=== PATIENT | male | born 1975 | race Caucasian/White ===

== ENCOUNTER 2022-05-25 04:00 | Emergency (ER) | payer BC ==
--- NOTE | 2022-05-25 04:38 | ED Physician Documentation ---
PD HPI CHEST PAIN - Stated complaint Stated Complaint: shoulder, chest pain - History obtained from History obtained from: Patient - History of Present Illness Timing - onset: How many days ago (3) Timing - details: Abrupt onset Pain level now: 2 Quality: Pressure Location: Left chest Radiation: Left upper extremity (left shoulder) Improved by: Nothing Worsened by: Inspiration Associated symptoms: No: Shortness of air, Diaphoresis, Nausea, Vomiting, Feeling faint / dizzy, General Weakness, Palpitations, Cough Similar symptoms before: Has not had sx before Recently seen: Not recently seen Review of Systems Constitutional: reports: Reviewed and negative Cardiac: reports: Chest pain / pressure. denies: Palpitations, Pedal edema, Calf pain Respiratory: reports: Reviewed and negative GI: reports: Reviewed and negative Musculoskeletal: denies: Extremity swelling PD PAST MEDICAL HISTORY - Past Medical History Past Medical History: No - Past Surgical History Past Surgical History: No - Allergies Allergies/Adverse Reactions: Allergies Allergy/AdvReac Type Severity Reaction Status Date / Time No Known Drug Allergies Allergy Verified 05/25/22 04:44 PD ED PE NORMAL - Vitals Vital signs reviewed: Yes - General General: Alert and oriented X 3, No acute distress, Well developed/nourished - Cardiac Cardiac: RRR, No murmur, No gallop, No rub - Respiratory Respiratory: No respiratory distress, Clear bilaterally - Abdomen Abdomen: Soft, Non tender - Derm Derm: Normal color, Warm and dry - Extremities Extremities: No edema Results - Vitals Vitals: Oxygen O2 Source Room air - EKG (time done) No standard instances Rate: Rate (enter#) (75) Rhythm: NSR [place]: Normal Intervals: Normal [place] QRS: Normal Ischemia: Normal ST segments - Labs Labs: Laboratory Tests 05/25/22 05/25/22 05/25/22 04:36 04:36 04:36 WBC 8.3 RBC 4.88 Hgb 15.0 Hct 43.5 MCV 89.1 MCH 30.7 MCHC 34.5 RDW 13.1 Plt Count 182 MPV 10.4 Neut # (Auto) 5.8 Lymph # (Auto) 1.5 [place] # (Auto) 0.8 Eos # (Auto) 0.1 Baso # (Auto) 0.1 Absolute Nucleated RBC 0.00 Nucleated RBC % 0.0 Sodium 138 Potassium 4.1 Chloride 102 Carbon Dioxide 27 Anion Gap 9.0 BUN 17 Creatinine 1.0 Estimated GFR (MDRD) 80 L Glucose 115 H Calcium 9.8 Total Bilirubin 0.8 AST 16 ALT 22 Alkaline Phosphatase 45 Troponin I High Sens 3.5 Total Protein 7.4 Albumin 4.3 Globulin 3.1 Albumin/Globulin Ratio 1.4 Lipase 47 PD MEDICAL DECISION MAKING - ED course Complexity details: reviewed results, re-evaluated patient, considered differential, d/w patient ED course: 3 days chest pain radiating to left shoulder. Does not meet any PERC criteria. normal EKG, CXR, and blood tests including hs-cTn. Results d/w patient, return precautions reviewed, recommended follow up with PMD, might benefit from further testing Departure - Departure Disposition: 01 Home, Self Care Clinical Impression: Chest pain Condition: Good Instructions: ED Atelectasis, ED Chest Pain Atypical Unkn Cause Comments: The results of the tests performed tonight are reassuring. There were non concerning findings on your blood tests nor EKG. As we discussed, the chest xray shows a very small opacity in the left lower lung that appears most consistent with atelectasis. The radiologist includes pneumonia on the differential (list of possible explanations), but, as we discussed, you do not have signs/symptoms to suggest pneumonia and thus I recommend no specific treatment for this finding. You should follow up with your primary care provider regarding the chest discomfort as well as the finding on the chest xray. Discharge Date/Time: 05/25/22 06:51
[2022-05-25 05:04] LABS: BASOPHILS # (AUTO) 0.1 10^3/uL (0.0-0.1); BASOPHILS % (AUTO) 0.7 %; EOSINOPHILS # (AUTO) 0.1 10^3/uL (0.0-0.7); EOSINOPHILS % (AUTO) 1.5 %; HCT - HEMATOCRIT 43.5 % (42.0-52.0); LYMPHOCYTES # (AUTO) 1.5 10^3/uL (1.5-3.5); LYMPHOCYTES % (AUTO) 17.9 %; MEAN CORPUSCULAR HEMOGLOBIN 30.7 pg (27.0-31.0); MEAN CORPUSCULAR HGB CONC 34.5 g/dL (32.0-36.0); MEAN CORPUSCULAR VOLUME 89.1 fL (80.0-94.0); MEAN PLATELET VOLUME 10.4 fL (7.4-11.4); MONOCYTES # (AUTO) 0.8 10^3/uL (0.0-1.0); MONOCYTES % (AUTO) 9.6 %; NEUTROPHILS # (AUTO) 5.8 10^3/uL (1.5-6.6); NEUTROPHILS % (AUTO) 69.9 %; PLT - PLATELET COUNT 182 10^3/uL (130-450); RED BLOOD COUNT 4.88 10^6/uL (4.70-6.10); RED CELL DISTRIBUTION WIDTH 13.1 % (12.0-15.0); WHITE BLOOD COUNT 8.3 x10^3/uL (4.8-10.8)
[2022-05-25 05:17] LABS: ALBUMIN 4.3 g/dL (3.2-5.5); ALBUMIN/GLOBULIN RATIO 1.4 (1.0-2.2); BILIRUBIN,TOTAL 0.8 mg/dL (0.2-1.0); CALCIUM 9.8 mg/dL (8.5-10.3); POTASSIUM 4.1 mmol/L (3.5-5.0); TOTAL PROTEIN 7.4 g/dL (6.7-8.2)
[2022-05-25 06:05] VITALS: BP 126/79
--- NOTE | 2022-05-25 07:29 | XRAY Report ---
PROCEDURE: Chest 2 View X-Ray INDICATIONS: chest pain TECHNIQUE: 2 view(s) of the chest. COMPARISON: None. FINDINGS: Surgical changes and devices: None. Lungs and pleura: Left basilar atelectasis and or infiltrate . Remainder of the lungs and both pleura l spaces are clear. Mediastinum: Mediastinal contours are normal. Heart size is normal. Bones and chest wall: No suspicious bony abnormalities. Soft tissues appear unremarkable. IMPRESSION: Left basilar atelectasis and or infiltrate. Note: Final report is concordant with preliminary interpretation provided by [email or web address] Reviewed by: Dawson Brown MD on 05/25/2022 6:27 AM AP Approved by: Dawson Brown MD on 05/25/2022 6:27 AM [email or web address] Station ID: [id number]
== END 2022-05-25 06:51 | disposition home or self-care (01) ==
LOC: ED 04:00
DX: R07.9 Chest pain, unspecified (principal)
CPT/HCPCS: 36415; 80053; 83690; 84484; 85025; 93005; 99282; 99284